=== PATIENT | male | born 1980 ===

== ENCOUNTER 2020-10-19 08:30 | Outpatient (CLI) | payer MEDICAID ==
--- NOTE | 2020-10-19 14:45 | Consultation ---
DATE OF CONSULTATION: 10/19/2020 GASTROENTEROLOGY CONSULTATION CONSULTING PHYSICIAN: Miguel Rees MD. CHIEF COMPLAINT: Abdominal pain. HISTORY OF PRESENT ILLNESS: This is a 40-year-old male with complaint of left lower quadrant abdominal pain since June 2020. Apparently, he had a CT scan done and ultrasound, which did not show any obvious source of his abdominal pain. He was given two courses of antibiotics, but only for short time, responded and it helped him with the pain, but after his antibiotics runs out his symptoms come back. His symptoms started with the constipation, now he is having normal solid stools. He denies any blood in the stool. PAST MEDICAL HISTORY: None. PAST SURGICAL HISTORY: None. MEDICATIONS: Prilosec, Truvada, Zyrtec, and probiotics. FAMILY HISTORY: Father had leukemia and grandmother had pancreatic cancer. SOCIAL HISTORY: The patient denies any tobacco, alcohol, or drug abuse. ALLERGIES: Penicillin and codeine. REVIEW OF SYSTEMS: As dictated above. PHYSICAL EXAMINATION: VITAL SIGNS: Temperature 98.1. Weight is 157.8. HEENT: Normocephalic and atraumatic. Sclerae are anicteric. NECK: Supple. No evidence of obvious lymphadenopathy. CARDIOVASCULAR: Regular rate and rhythm. Plus S1, S2. LUNGS: Clear to auscultation bilaterally. ABDOMEN: Positive bowel sounds. Soft and nontender. No rebound. No guarding. No peritoneal sign. EXTREMITIES: No cyanosis, no clubbing, no edema. ASSESSMENT AND PLAN: This is a 40-year-old male with abdominal pain of unknown etiology, had negative CT and negative ultrasound, partial response to antibiotics. The patient will most probably benefit from colonoscopy for further evaluation of the source of his abdominal pain. The patient was given instruction for colonoscopy. Risks and benefits of procedure was explained to him. We will schedule him as soon as authorization is obtained. Miguel Rees M.D. DR: [id number] JOB#: [id number] CC:
== END 2020-10-19 10:30 | disposition home or self-care (01) ==
LOC: PAN 08:30
DX: R10.32 Left lower quadrant pain (principal); Z79.899 Other long term (current) drug therapy; Z88.0 Allergy status to penicillin; Z88.6 Allergy status to analgesic agent; Z80.6 Family history of leukemia; Z80.8 Family history of malignant neoplasm of other organs or systems
CPT/HCPCS: G0463